=== PATIENT | male | born 1990 | race Caucasian/White ===

== ENCOUNTER 2018-11-25 18:33 | Emergency (ER) | payer MEDICAID ==
[~2018-11-25] VITALS: Ht 167.6 cm; Wt 56.5 kg
[2018-11-25 18:38] VITALS: Ht 167.6 cm; Wt 56.5 kg
[2018-11-25] MEDS ORDERED: ZOLOFT100 MG PO (18:41)
[2018-11-25] MEDS ORDERED: INVEGA 3 MG ER T3 MG PO (18:41)
[2018-11-25] MEDS ORDERED: TOFRANIL50 MG PO (18:41)
[2018-11-25] MEDS ORDERED: BUSPAR 15 MG TA15 MG PO (18:42)
[2018-11-25 19:38] LABS: BASOPHILS 0.9 % (0-2); EOSINOPHILS 3.8 % (0-7); IMMATURE GRANULOCYTES 0.6 % (0-5); LYMPHOCYTES 31.5 % (15-50); MCH 30.7 pg (26.0-34.0); MCHC 34.2 g/dL (31.0-37.0); MCV 89.6 fL (80.0-100.0); MEAN PLATELET VOLUME 9.3 fL (7.4-10.4); NEUTROPHILS 54.2 % (40-80); PLATELET COUNT 207 10x3/uL (130-400); RBC 4.24 10x6/uL (4.20-6.10); RDW 13.7 % (11.5-14.5)
[2018-11-25 19:50] LABS: ALBUMIN 3.6 g/dL (3.4-5.0); ALKALINE PHOSPHATASE 123 U/L (46-116); ALT (SGPT) 51 U/L (10-68); BILIRUBIN - TOTAL 0.22 mg/dL (0.2-1.3); CALC OSMOLALITY 279 mosm/kg (275-300); CALCIUM 8.4 mg/dL (8.5-10.1); CARBON DIOXIDE 29.1 mmol/L (21.0-32.0); CHLORIDE - SERUM 106 mmol/L (98-107); CREATINE KINASE 60 UL (21-232); CREATININE - SERUM 0.9 mg/dL (0.6-1.3); GLUCOSE 89 mg/dL (74-106); MAGNESIUM - SERUM 1.7 mg/dL (1.8-2.4); POTASSIUM - SERUM 3.6 mmol/L (3.5-5.1); PROTEIN - SERUM 6.3 g/dL (6.4-8.2); SODIUM 142 mmol/L (136-145); UREA NITROGEN 7 mg/dL (7-18); eGFR NON AFRICAN AMERICAN > 90 mL/min (90-120)
[2018-11-25 20:55] VITALS: BP 121/76
== END 2018-11-25 20:58 | disposition home or self-care (01) ==
LOC: D.ER 18:33
PROVIDERS: Family Medicine
DX: M79.18 Myalgia, other site (principal); F43.10 Post-traumatic stress disorder, unspecified; X58.XXXA Exposure to other specified factors, initial encounter; Y93.89 Activity, other specified; Y92.89 Other specified places as the place of occurrence of the external cause

== ENCOUNTER 2019-07-21 18:18 | Emergency (ER) | payer MEDICAID ==
[~2019-07-21] VITALS: Ht 167.6 cm; Wt 54.5 kg
[~2019-07-21 18:18] MED LIST: BUSPAR 15 MG TA15 MG PO; INVEGA 3 MG ER T3 MG PO; TOFRANIL50 MG PO; ZOLOFT100 MG PO
[2019-07-21 18:35] VITALS: Ht 167.6 cm; Wt 54.5 kg
[2019-07-21] MEDS ORDERED: HYDROCODON-ACE1 EAC2 PO (20:32)
[2019-07-21 21:08] VITALS: BP 118/77
== END 2019-07-21 21:09 | disposition home or self-care (01) ==
LOC: D.ER 18:18
DX: S05.02XA Injury of conjunctiva and corneal abrasion without foreign body, left eye, initial encounter (principal); W22.8XXA Striking against or struck by other objects, initial encounter; Y93.I9 Activity, other involving external motion; Y92.9 Unspecified place or not applicable; H15.9 Unspecified disorder of sclera

== ENCOUNTER 2020-12-01 16:00 | Inpatient (IN) | payer BC ==
[~2020-12-01] VITALS: Ht 167.6 cm; Wt 54.0 kg
[~2020-12-01 16:00] MED LIST changes: +HYDROCODON-ACE1 EAC2 PO
[2020-12-01] MEDS ORDERED: CARAFATE1 G PO (16:17)
[2020-12-01] MEDS ORDERED: PROTONIX40 MG PO (16:17)
[2020-12-01 16:25] VITALS: BMI 19.2
[2020-12-01 16:43] LABS: EOSINOPHILS 6.9 % (0-7); HEMATOCRIT 39.9 % (42.0-54.0); HEMOGLOBIN 13.3 g/dL (13.5-17.5); LYMPHOCYTES 47.1 % (15-50); MCHC 33.3 g/dL (31.0-37.0); MCV 90.1 fL (80.0-100.0); MEAN PLATELET VOLUME 7.6 fL (7.4-10.4); MONOCYTES 11.7 % (2-11); NEUTROPHILS 33.3 % (40-80); PLATELET COUNT 199 10x3/uL (130-400); RBC 4.43 10x6/uL (4.20-6.10); RDW 13.3 % (11.5-14.5); WBC 4.9 10x3/uL (4.8-10.8)
[2020-12-01 16:51] LABS: CALC OSMOLALITY 276 mosm/kg (275-300); CALCIUM 8.4 mg/dL (8.5-10.1); CARBON DIOXIDE 25.4 mmol/L (21.0-32.0); CHLORIDE - SERUM 106 mmol/L (98-107); CREATININE - SERUM 0.8 mg/dL (0.6-1.3); GLUCOSE 87 mg/dL (74-106); POTASSIUM - SERUM 3.9 mmol/L (3.5-5.1); SODIUM 140 mmol/L (136-145); UREA NITROGEN 9 mg/dL (7-18); eGFR NON AFRICAN AMERICAN > 90 mL/min (90-120)
[2020-12-01 16:53] LABS: ALBUMIN 3.4 g/dL (3.4-5.0); ALKALINE PHOSPHATASE 73 U/L (30-120); ALT (SGPT) 20 U/L (10-68); AMYLASE - SERUM 44 U/L (25-115); BILIRUBIN - TOTAL 0.34 mg/dL (0.2-1.3); LIPASE 50 U/L (73-393); MAGNESIUM - SERUM 1.8 mg/dL (1.8-2.4)
--- NOTE | 2020-12-01 18:49 | NUR ---
IV STARTED IN LEFT FA X 2 STICKS. 20G. PATIENT TOLERATED WITH SMALL AMOUNT OF PAIN. IVF STARTED. CALL LIGHT WITHIN REACH.
[2020-12-01 20:00] VITALS: BP 114/76
[2020-12-02] VITALS: BP 83/32
[2020-12-02 04:00] VITALS: BP 115/62
--- NOTE | 2020-12-02 04:34 | NUR ---
ASSESSED AT THE BEGINNING OF THE SHIFT. PT IS ALERT AND ORIENTED, ABLE TO VERBALIZE NEEDS.HE IS NPO AND ALSO ON ROOM AIR. PAIN MEDS HAVE BEEN GIVEN NEEDED AND ORDERED. HE IS ABLAE IVETH GET UP TO THE BATHROOM AD CLARE. TELEMETRY WAS PLACED ON HIM AND IT SHOWS HIM AT [address].
[2020-12-02 06:17] LABS: BASOPHILS 0.8 % (0-2); EOSINOPHILS 5.9 % (0-7); HEMATOCRIT 41.8 % (42.0-54.0); LYMPHOCYTES 39.6 % (15-50); MCH 30.2 pg (26.0-34.0); MCHC 33.5 g/dL (31.0-37.0); MCV 90.2 fL (80.0-100.0); MEAN PLATELET VOLUME 8.2 fL (7.4-10.4); MONOCYTES 8.9 % (2-11); NEUTROPHILS 44.8 % (40-80); PLATELET COUNT 197 10x3/uL (130-400); RBC 4.64 10x6/uL (4.20-6.10); RDW 13.3 % (11.5-14.5)
[2020-12-02 06:38] LABS: ALBUMIN 3.5 g/dL (3.4-5.0); ALKALINE PHOSPHATASE 67 U/L (30-120); ALT (SGPT) 16 U/L (10-68); AMYLASE - SERUM 44 U/L (25-115); BILIRUBIN - TOTAL 0.52 mg/dL (0.2-1.3); CALC OSMOLALITY 283 mosm/kg (275-300); CALCIUM 8.8 mg/dL (8.5-10.1); CARBON DIOXIDE 27.9 mmol/L (21.0-32.0); CHLORIDE - SERUM 110 mmol/L (98-107); CREATININE - SERUM 0.8 mg/dL (0.6-1.3); GLUCOSE 85 mg/dL (74-106); POTASSIUM - SERUM 4.1 mmol/L (3.5-5.1); PROTEIN - SERUM 6.1 g/dL (6.4-8.2); SODIUM 144 mmol/L (136-145); UREA NITROGEN 7 mg/dL (7-18); eGFR NON AFRICAN AMERICAN > 90 mL/min (90-120)
[2020-12-02 06:43] LABS: LIPASE 41 U/L (73-393)
[2020-12-02 07:43] LABS: BILIRUBIN NEGATIVE (NEGATIVE); KETONE NEGATIVE (NEGATIVE); NITRITE NEGATIVE (NEGATIVE); UROBILINOGEN NORMAL mg/dL (< 2)
[2020-12-02 08:15] VITALS: BP 114/73
[2020-12-02 11:43] VITALS: BP 129/69
[2020-12-02 14:08] VITALS: Ht 167.6 cm; Wt 54.0 kg
[2020-12-02 16:10] VITALS: BP 122/66
[2020-12-02 22:09] VITALS: BP 140/68
--- NOTE | 2020-12-03 03:04 | NUR ---
I have reviewed this patient and I concur with the Shift Assessment completed by the Licensed Practical Nurse today this shift.
[2020-12-03 04:58] VITALS: BP 119/43
[2020-12-03 06:02] LABS: BASOPHILS 0.9 % (0-2); EOSINOPHILS 5.3 % (0-7); HEMATOCRIT 40.4 % (42.0-54.0); HEMOGLOBIN 13.4 g/dL (13.5-17.5); LYMPHOCYTES 42.5 % (15-50); MCH 29.9 pg (26.0-34.0); MCHC 33.2 g/dL (31.0-37.0); MCV 89.9 fL (80.0-100.0); MEAN PLATELET VOLUME 7.9 fL (7.4-10.4); MONOCYTES 9.2 % (2-11); NEUTROPHILS 42.1 % (40-80); PLATELET COUNT 201 10x3/uL (130-400); RBC 4.49 10x6/uL (4.20-6.10); WBC 4.9 10x3/uL (4.8-10.8)
[2020-12-03 06:54] LABS: ALBUMIN 3.1 g/dL (3.4-5.0); ALKALINE PHOSPHATASE 73 U/L (30-120); AMYLASE - SERUM 38 U/L (25-115); BILIRUBIN - TOTAL 0.65 mg/dL (0.2-1.3); CALCIUM 7.9 mg/dL (8.5-10.1); CARBON DIOXIDE 25.8 mmol/L (21.0-32.0); CHLORIDE - SERUM 108 mmol/L (98-107); CREATININE - SERUM 0.8 mg/dL (0.6-1.3); GLUCOSE 75 mg/dL (74-106); LIPASE 46 U/L (73-393); MAGNESIUM - SERUM 1.8 mg/dL (1.8-2.4); POTASSIUM - SERUM 3.5 mmol/L (3.5-5.1); PROTEIN - SERUM 5.6 g/dL (6.4-8.2); SODIUM 143 mmol/L (136-145); eGFR NON AFRICAN AMERICAN > 90 mL/min (90-120)
[2020-12-03 06:55] LABS: ALT (SGPT) 31 U/L (10-68); CALC OSMOLALITY 280 mosm/kg (275-300); UREA NITROGEN 4 mg/dL (7-18)
[2020-12-03 08:24] VITALS: BP 125/59
[2020-12-03] MEDS ORDERED: ZOFRAN4 MG PO (11:23)
--- NOTE | 2020-12-03 12:25 | MORECARE ---
CASE MANAGEMENT DISCHARGE SUMMARY PATIENT: LAURA PANTOJA UNIT: [id number] ADM DATE: 12/01/20 AGE: 30 : 89 SEX: M ROOM/BED: D.2233 AUTHOR: STACI,DOC PHYSICIAN: REFERRING PHYSICIAN: BUZZ CAUSEY DO DATE OF SERVICE: 12/03/20 Case Management Discharge Planning Summary COMMENTS ENTERED DATE: 12/03/20 12:23 CT COMMENT TYPE: Discharge Planning REVIEWER: Chiqui Ventura CM met with patient to complete DC plan and to evaluate needs. Patient lives with his father, Donis Devlin, and is independent with all ADLs. Patient stated that his home is safe and has electricity and running water. Patient stated that he has no problems paying for medications and he fills his medications at [facility] on [facility] [address]. At discharge, the patient will call his father for transportation and feels that it is safe for him to return home. CM discussed availability of home health, rehab services, and medical equipment. Patient declined HHS, SNF, IPR, and DME. Patient voiced no other needs at this time and is satisfied with DC plan. CM will continue to follow and will assist as needed with dc plans/needs. DCP REVIEW SUMMARY ANTICIPATED D/C DATE: 12/03/2020 EXPECTED LOS : 2 CASE STATUS: DCP Initiated INITIAL REVIEW: 12/01/2020 INITIAL REVIEWER: Chiqui Ventura FINAL DISCHARGE DISPOSITION: 01 : Home or Self Care (Routine Discharge) FINAL REVIEWER: FINAL REVIEW DATE: DCP Focus Questions & Answers QUESTION: ANSWER : PATIENT: LAURA PANTOJA ENCOUNTER: [id number] MEDICAL RECORD#: [id number] ADMISSION DATE: 12/01/2020 DISCHARGE DATE: ATTENDING MD: BUZZ COUCH : AGE: 30 MARITAL STATUS: S DC PLAN ID: [id number] FACILITY: [facility] PRINTED ON: 12/03/20 12:25 CT All edits/amendments must be made on the electronic document DICTATION DATE: 12/03/201224 BAR TENDER: TALI 12/03/20 122 RPT#: [id number] DC DATE: STATUS: ADM IN [facility] [address] [place] [address] END OF REPORT
--- NOTE | 2020-12-03 12:30 | NUR ---
0700 BEDSIDE REPORT RECEIVED ASSESSMENT COMPLETE AMBULATINGN IN ROON RNCOURAGED IS USE
--- NOTE | 2020-12-03 12:31 | NUR ---
6810 WRITTEN AND VERBAL DISCHARGE INSTRUCTION WRITTEN VERBALIZED UNDERSTANDING WENT OVER PT FIGUEROA MEDS ACKNOWLEDGED BY PATIENT IV D/C SITE SATISFACTORY TRANSPORTED VIA WHEELCHAIR TO ENTRANCE PATIENT REBECA SELF HOME
--- NOTE | 2020-12-03 12:36 | MORECARE ---
CASE MANAGEMENT DISCHARGE SUMMARY PATIENT: LAURA PANTOJA UNIT: [id number] ADM DATE: 12/01/20 AGE: 30 : 89 SEX: M ROOM/BED: D.2233 AUTHOR: STACI,DOC PHYSICIAN: REFERRING PHYSICIAN: BUZZ CAUSEY DO DATE OF SERVICE: 12/03/20 Case Management Discharge Planning Summary COMMENTS ENTERED DATE: 12/03/20 12:23 CT COMMENT TYPE: Discharge Planning REVIEWER: Chiqui Ventura CM met with patient to complete DC plan and to evaluate needs. Patient lives with his father, Donis Devlin, and is independent with all ADLs. Patient stated that his home is safe and has electricity and running water. Patient stated that he has no problems paying for medications and he fills his medications at [facility] on [facility] [address]. At discharge, the patient will call his father for transportation and feels that it is safe for him to return home. CM discussed availability of home health, rehab services, and medical equipment. Patient declined HHS, SNF, IPR, and DME. Patient voiced no other needs at this time and is satisfied with DC plan. CM will continue to follow and will assist as needed with dc plans/needs. DCP REVIEW SUMMARY ANTICIPATED D/C DATE: 12/03/2020 EXPECTED LOS : 2 CASE STATUS: DCP Initiated INITIAL REVIEW: 12/01/2020 INITIAL REVIEWER: Chiqui Ventura FINAL DISCHARGE DISPOSITION: 01 : Home or Self Care (Routine Discharge) FINAL REVIEWER: FINAL REVIEW DATE: DCP Focus Questions & Answers DCP Screen QUESTION: ANSWER High Risk Factors: : None Walking limitation: Patient stated self rated walking limitation present? : No Age: : 20 - 46 Prior living environment: : Lives with others Disability ranking: : Grade 1: No significant disability DCP Evaluation QUESTION: ANSWER Patient's current cognitive status: : Alert Patient's current cognitive status: : *Oriented to person, place, situation, time and present Patient's ability to cope with chronic illness : d. No chronic illness Patient and/or caregiver agree upon recommended discharge plan? : Yes Physical Status: : Independent with ADL's Does the patient have the ability to pay for or attain post discharge needs / services? : N/A Functional screen assessment: : Basic needs can adequately be met by self Living Arrangements: : Home with Parents Equipment needed for post hospitalization: : None Is there a likelihood that the patient will require additional services to return to the preadmission environment? : No Living arrangements comments: : Lives with Father, Donis Devlin Baseline cognitive status: : Alert Baseline cognitive status: : *Oriented to person, place, situation, time and present Results of this evaluation have been discussed with: : Patient Patient with capacity for self-care or can be cared for in same environment as prior to hospitalization? : Yes Physical environment modification needed / anticipated for discharge: : N/A Medication Management: : Patient states can afford medications [facility] : [facility] [address] Planned post hospital services available for patient? : N/A Does Patient have transportation to get home and to follow-up medical appointments when discharged from the hospital? : Yes Planned post hospital services covered by insurance plan? : N/A Comments: : Transportation provided by father Would patient like to participate in any Care Coordination programs (if applicable): : Not applicable Does the patient have electricity at home? : Yes Does the patient have running water in their house? : Yes Equipment in use: : None Mental health screen: : No mental health history DCP Re-evaluation QUESTION: ANSWER Would patient like to participate in any Care Coordination programs (if applicable): : Not applicable PATIENT: LAURA PANTOJA ENCOUNTER: [id number] MEDICAL RECORD#: [id number] ADMISSION DATE: 12/01/2020 DISCHARGE DATE: 12/03/2020 ATTENDING MD: BUZZ COUCH : AGE: 30 MARITAL STATUS: S DC PLAN ID: [id number] FACILITY: [facility] PRINTED ON: 12/03/20 12:35 CT All edits/amendments must be made on the electronic document DICTATION DATE: 12/03/20 1235 SUPPORT ASSOCIATE: TALI 12/03/20 1235 RPT#: [id number] DC DATE:12/03/20 STATUS: DIS IN [facility] [address] [place] [address] END OF REPORT
--- NOTE | 2020-12-05 09:31 | MORECARE ---
CASE MANAGEMENT DISCHARGE SUMMARY PATIENT: LAURA PANTOJA UNIT: [id number] ADM DATE: 12/01/20 AGE: 30 : 89 SEX: M ROOM/BED: D.2233 AUTHOR: STACI,DOC PHYSICIAN: REFERRING PHYSICIAN: BUZZ CAUSEY DO DATE OF SERVICE: 12/05/20 Case Management Discharge Planning Summary COMMENTS ENTERED DATE: 12/03/20 12:23 CT COMMENT TYPE: Discharge Planning REVIEWER: Chiqui Ventura CM met with patient to complete DC plan and to evaluate needs. Patient lives with his father, Donis Devlin, and is independent with all ADLs. Patient stated that his home is safe and has electricity and running water. Patient stated that he has no problems paying for medications and he fills his medications at [facility] on [facility] [address]. At discharge, the patient will call his father for transportation and feels that it is safe for him to return home. CM discussed availability of home health, rehab services, and medical equipment. Patient declined HHS, SNF, IPR, and DME. Patient voiced no other needs at this time and is satisfied with DC plan. CM will continue to follow and will assist as needed with dc plans/needs. DCP REVIEW SUMMARY ANTICIPATED D/C DATE: 12/03/2020 EXPECTED LOS : 2 CASE STATUS: DCP Initiated INITIAL REVIEW: 12/01/2020 INITIAL REVIEWER: Chiqui Ventura FINAL DISCHARGE DISPOSITION: 01 : Home or Self Care (Routine Discharge) FINAL REVIEWER: FINAL REVIEW DATE: DCP Focus Questions & Answers DCP Screen QUESTION: ANSWER High Risk Factors: : None Walking limitation: Patient stated self rated walking limitation present? : No Age: : 20 - 46 Prior living environment: : Lives with others Disability ranking: : Grade 1: No significant disability DCP Evaluation QUESTION: ANSWER Patient's current cognitive status: : Alert Patient's current cognitive status: : *Oriented to person, place, situation, time and present Patient's ability to cope with chronic illness : d. No chronic illness Patient and/or caregiver agree upon recommended discharge plan? : Yes Physical Status: : Independent with ADL's Does the patient have the ability to pay for or attain post discharge needs / services? : N/A Functional screen assessment: : Basic needs can adequately be met by self Living Arrangements: : Home with Parents Equipment needed for post hospitalization: : None Is there a likelihood that the patient will require additional services to return to the preadmission environment? : No Living arrangements comments: : Lives with Father, Donis Devlin Baseline cognitive status: : Alert Baseline cognitive status: : *Oriented to person, place, situation, time and present Results of this evaluation have been discussed with: : Patient Patient with capacity for self-care or can be cared for in same environment as prior to hospitalization? : Yes Physical environment modification needed / anticipated for discharge: : N/A Medication Management: : Patient states can afford medications [facility] : [facility] [address] Planned post hospital services available for patient? : N/A Does Patient have transportation to get home and to follow-up medical appointments when discharged from the hospital? : Yes Planned post hospital services covered by insurance plan? : N/A Comments: : Transportation provided by father Would patient like to participate in any Care Coordination programs (if applicable): : Not applicable Does the patient have electricity at home? : Yes Does the patient have running water in their house? : Yes Equipment in use: : None Mental health screen: : No mental health history DCP Re-evaluation QUESTION: ANSWER Would patient like to participate in any Care Coordination programs (if applicable): : Not applicable PATIENT: LAURA PANTOJA ENCOUNTER: [id number] MEDICAL RECORD#: [id number] ADMISSION DATE: 12/01/2020 DISCHARGE DATE: 12/03/2020 ATTENDING MD: BUZZ COUCH : AGE: 30 MARITAL STATUS: S DC PLAN ID: [id number] FACILITY: [facility] PRINTED ON: 12/05/20 9:31 CT All edits/amendments must be made on the electronic document DICTATION DATE: 12/05/20930 THIRD RIGGER: TALI 12/05/20930 RPT#: [id number] DC DATE:12/03/20 STATUS: DIS IN [facility] [address] [place] [address] END OF REPORT
== END 2020-12-03 12:31 | disposition home or self-care (01) | DRG 392 ==
LOC: D.MS 16:00
PROVIDERS: Family Medicine; ADMIT Family Medicine; ATTEND Family Medicine
DX: R10.9 Unspecified abdominal pain (principal); K92.0 Hematemesis